=== PATIENT | female | born 1950 | race Caucasian/White ===

== ENCOUNTER 2017-10-22 03:58 | Emergency (ER) | payer OTHER ==
[2017-10-22 04:04] VITALS: BP 165/87; PULSE 71; TEMP 98.3; BMI 25.8
--- NOTE | 2017-10-22 04:04 | PDOC ---
History of Present Illness - General Chief Complaint: Blood Pressure Problem Stated Complaint: "MY PRESSURE IS HIGH" Time Seen by Provider: 10/22/17 03:59 - History of Present Illness Initial Comments: This 67-year-old woman presents with a several hour history of headache and elevated blood pressure as seen on her home BP monitor. Patient's has had several year history of hypertension. Patient is mainly [place] speaking and her is providing history and interpretation. In the last 2-3 years she has been on a combination ARB/diuretic. The patient states that she primarily fills her blood pressure medication when she revisits [place] which she and her do several times a year. She has been seen by Dr. Beckford in the past but not in the last few years. Patient took her blood pressure this evening because of her headache and noticed that it was high. She subsequently took an additional half of her usual morning antihypertensive medication. She came to the emergency room when she found that it was high(diastolic over 90) She has had no vision changes/difficulty speaking/extremity weakness/facial droop. She normally takes Tylenol only for her pain/headaches and has taken only one tablet this Past History - Past Medical History Allergies/Adverse Reactions: Allergies Allergy/AdvReac Type Severity Reaction Status Date / Time Penicillins Allergy Verified 10/22/17 04:04 Home Medications: Ambulatory Orders Irbesartan/Hydrochlorothiazide [Irbesartan-Hctz 300-12.5 mg Tb] 1 each PO DAILY 10/22/17 *DC/Admit/Observation/Transfer Diagnosis at time of Disposition: Hypertension Qualifiers: Hypertension type: essential hypertension Qualified Code(s): I10 - Essential ( primary) hypertension Headache Qualifiers: Headache type: unspecified Headache chronicity pattern: acute headache - Discharge Dispostion Disposition: HOME Condition at time of disposition: Stable - Referrals Referrals: Louis Beckford MD [Primary Care Provider] - Call tomorrow - Patient Instructions Printed Discharge Instructions: DI for High Blood Pressure Additional Instructions: Continue blood pressure medication as prescribed Tylenol as needed for headache Call Dr. Beckford's office later in the morning to followup within the next 2 days Return to ER if you have severe, persistent headache - Post Discharge Activity
== END 2017-10-22 04:52 | disposition home or self-care (01) ==
LOC: FER 03:58
DX: I10 Essential (primary) hypertension (principal)
CPT/HCPCS: 99282-25